=== PATIENT | female | born 1990 | race Caucasian/White ===

== ENCOUNTER → 2017-11-16 15:08 | Outpatient (CLI) | payer OTHER, MEDICAID, SELFPAY ==
[2017-11-26 13:31] LABS: AFP 44.4 ng/mL; Brief History NOT GIVEN; Hx of Neural Tube Defect NO; Inhibin A Value 193 pg/mL; Method of Estimation Ultrasound; Prev Pregnancy with Down Syndr NOT GIVEN
[2017-11-29 16:03] LABS: Number of Fetuses 1
== END ==
PROVIDERS: PCP Family Medicine; Visit Provider Specialist
DX: Z34.02 Encounter for supervision of normal first pregnancy, second trimester (principal); Z3A.17 17 weeks gestation of pregnancy
CPT/HCPCS: 82105; 82677; 84702; 86336

== ENCOUNTER → 2017-11-30 15:09 | Outpatient (CLI) | payer OTHER, MEDICAID, SELFPAY ==
--- NOTE | 2017-11-30 15:11 | DI.US.S_ITS ---
PROCEDURE: US OB >= 14 WEEKS FETUS INDICATIONS: 20 WEEK ANATOMICAL SURVEY OUTSIDE/PRIOR DATING DATA: Last menstrual period (LMP): 07/14/2017. LMP-based estimated date of delivery (MELONY): 04/20/2018. First dating scan (date and location): 09/19/2017. Estimated date of delivery (MELONY) from first dating scan: 04/21/2018. TECHNIQUE: Real-time scanning was performed of the fetus, with image documentation and biometric measurements. Endovaginal scanning: None required COMPARISON: [facility], , OB >= 14 WEEKS FETUS, 11/16/2017, 14:57. FINDINGS: General: A single living intrauterine gestation is present. Presentation: Transverse, head to the maternal left.. Placenta: Placental position is posterior right, without previa. Amniotic fluid index: 12.9 cm, normal range is 5-24 cm. heart rate: 153 beats per minute. Maternal cervical canal: 3.6 cm long. Normal lower limit is 2.5 cm. biometrics: Biparietal diameter: 20 weeks 3 days Head circumference: 19 weeks 5 days Abdominal circumference: 19 weeks 6 days Femur length: 19 weeks 6 days Estimated gestational age from initial scan: 19 weeks 5 days Composite gestational age from present scan: 20.0 weeks, normal growth Estimated weight and percentile: 317 g the 54th percentile Measurement variability for biometric dating: +/- 7 days from 14 weeks to 15 weeks 6 days gestation, +/- 10 days from 16 weeks to 21 weeks 6 days gestation, +/- 2 weeks from 22 weeks to 27 weeks 6 days gestation, +/- 3 weeks for 28 weeks gestation or later. weight reference: 4500 g or EFW >90/95% is considered macrosomia or large for gestational age. EFW <10% is small for gestational age. EFW 5% or less is considered intra-uterine growth restriction. Anatomic survey: Neuro: Ventricles are non-dilated at less than 10 mm. Cisterna magna is normal at 3-11 mm. Cerebellum is normal in size and morphology. Nuchal skin fold: Normal at less than 6 mm between 14-21 weeks gestational age. Face: Nose and lips, facial profile are normal. Spine: Spine is not well seen secondary to position Heart: 4-chambered heart is present, with normal ventricular outflow tracts. Diaphragm: Diaphragm is intact. Stomach: Left-sided stomach is present. Kidneys: No hydronephrosis. Normal is less than 5 mm in 2nd trimester, less than 7 mm in 3rd trimester. Cord: 3-vessel cord has orthotopic insertion. Bladder: Normal in size. Extremities: All 4 extremities identified. IMPRESSION: Single, live intrauterine gestation in transverse lie showing composite gestational age of 20 weeks, normal growth and normal anatomy although spine is not well seen. Dictated by: Tutu Montesinos M.D. on 11/30/2017 at 16:24 Approved by: Tutu Montesinos M.D. on 11/30/2017 at 16:28
== END ==
PROVIDERS: PCP Family Medicine; Visit Provider Specialist
DX: Z34.92 Encounter for supervision of normal pregnancy, unspecified, second trimester (principal); Z3A.20 20 weeks gestation of pregnancy
CPT/HCPCS: 76811

== ENCOUNTER → 2017-12-29 12:23 | Outpatient (CLI) | payer OTHER, MEDICAID, SELFPAY | PROVIDERS: PCP Family Medicine; Visit Provider Specialist | DX: Z53.9 Procedure and treatment not carried out, unspecified reason (principal) ==